=== PATIENT | male | born 1995 | race Caucasian/White ===

== ENCOUNTER 2022-11-06 18:57 | Emergency (ER) | payer MEDICAID, SELFPAY ==
[2022-11-06 18:59] VITALS: BP 163/97; PULSE 65; RESP 16; TEMP 36.2; O2SAT 98; BMI 23.8
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
--- NOTE | 2022-11-06 19:09 | RAD_ITS ---
EXAM: XR LEFT HAND COMPLETE, 3 OR MORE VIEWS CLINICAL INDICATION: Injury/Pain TECHNIQUE: Frontal, lateral and oblique views of the left hand. This report was created using [employer] report generation technology. COMPARISON: None. FINDINGS: BONES/JOINTS: There is a fracture of the distal fifth metacarpal. There is soft tissue swelling over the dorsum of the hand. Preservation of the joint space. No sclerotic or destructive changes observed. SOFT TISSUES: See above. RAD/Hand Min 3 Views IMPRESSION: Fracture the distal fifth metacarpal with soft tissue swelling. Electronically Signed: Hugo Amador MD at 19:38 EDT ,
== END 2022-11-06 20:12 | disposition home or self-care (01) ==
PROVIDERS: Emergency Provider Emergency Medicine; PCP Family Medicine; Visit Provider Emergency Medicine
DX: S62.337A Displaced fracture of neck of fifth metacarpal bone, left hand, initial encounter for closed fracture (principal); Y29.XXXA Contact with blunt object, undetermined intent, initial encounter
CPT/HCPCS: 29125; 73130; 99282

== ENCOUNTER 2023-04-21 13:34 | Emergency (ER) | payer SELFPAY ==
[2023-04-21 13:34] VITALS: BP 130/88; PULSE 85; RESP 18; TEMP 36.3; O2SAT 99; BMI 24.5
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
[2023-04-21 15:25] VITALS: PULSE 18
== END 2023-04-21 15:26 | disposition home or self-care (01) ==
PROVIDERS: Emergency Provider Emergency Medicine; PCP Family Medicine; Visit Provider Emergency Medicine
DX: M25.461 Effusion, right knee (principal); S80.211A Abrasion, right knee, initial encounter; V29.888A Rider (driver) (passenger) of other motorcycle injured in other specified transport accidents, initial encounter
CPT/HCPCS: 73564; 99283